=== PATIENT | female | born 1970 | race Caucasian/White ===

== ENCOUNTER 2017-11-12 21:39 | Observation (INO) ==
--- NOTE | 2017-11-12 21:59 | Emergency Department Note ---
Disposition Clinical Impression: Chest pain Disposition: Admitted As Inpatient Condition: Good Time of Disposition: 23:13 Chest Pain HPI - General Chief Complaint: ED Chest Pain Stated Complaint: chest pain x2 days Time Seen by Provider: 11/12/17 21:51 Source: patient Mode of arrival: ambulatory Limitations: no limitations Vital Signs Reviewed: Yes Nursing Notes Reviewed: Yes - History of Present Illness HPI Narrative: Patient presents to the ED with chief complaint of chest pain. Patient has a history of hypertension, fairly well controlled on Norvasc and hydrochlorothiazide. States that she was admitted 2 years ago for chest pain and had a normal stress test. Presenting today for a 2 day history of chest pressure and heaviness, which became acutely worse this evening. States has been intermittent, described as a pressure and heaviness in her central retrosternal chest with radiation into her left arm. No radiation to the back or abdomen. Associated with nausea but no vomiting. Has had intermittent diaphoresis with this as well. No headaches, changes in vision, cough, abdominal pain, pain or swelling in her legs or rash. The pain is significantly worse with exertion Severity scale (1-10): 8 - Related Data Home Medications Medication Instructions Recorded Confirmed Amlodipine Besylate 10 mg PO DAILY 11/12/17 11/12/17 Omeprazole [PriLOSEC] 40 mg PO DAILY 11/12/17 11/12/17 hydroCHLOROthiazide 25 mg PO DAILY 11/12/17 11/12/17 [Hydrochlorothiazide] Previous Rx's Medication Instructions Recorded Atorvastatin [Lipitor] 10 mg PO HS #30 tablet 01/12/16 Allergies Allergy/AdvReac Type Severity Reaction Status Date / Time Hydromorphone [From Dilaudid] AdvReac Nausea Verified 01/11/16 03:54 Review of Systems: As reviewed in the HPI. All other systems reviewed are negative or normal. Chest Pain PMH - Past Medical History Medical history: Reports: hyperlipidemia, hypertension, other Surgical history: Reports: cholecystectomy Psychiatric history: Reports: no psych history - Social History Smoking Status: Never smoker Alcohol use: Reports: none Drug use: Reports: none Physical Exam CONSTITUTIONAL: [well appearing in no acute distress] SKIN: [Warm, dry, and intact without rash] EYES: [extraocular movements are grossly intact, clear conjunctiva] HENT: [Normocephalic, atraumatic, moist mucus membranes] NECK: [no obvious swelling, normal range of motion] PULMONARY: [normal chest rise and fall, no respiratory distress or stridor CARDIOVASCULAR: [regular rate, distal extremities are warm and well perfused] GASTROINSTESTINAL: [nondistended, non-tender] GENITOURINARY: [deferred] NEUROLOGIC: [normal speech, moves all extremities] MUSCULOSKELETAL: [no gross deformities, atraumatic] PSYCHIATRIC: [normal mood and affect] - General Limitations: no limitations General appearance: alert, in no apparent distress Course Course Narrative: Patient presenting with chest pain concerning for angina. We will get a chest pain workup and admit. Patient likely will need a heart catheter or a repeat stress test. - Reevaluation(s) Reevaluation #1: Workup is unremarkable. Patient did get complete relief of her pain with nitroglycerin. Admitted to the hospitalist service for chest pain, rule out Vital Signs Temperature 98.1 F 11/12/17 21:43 Pulse Rate 79 11/12/17 21:43 Respiratory Rate 20 11/12/17 21:43 Blood Pressure 144/98 11/12/17 21:43 O2 Sat by Pulse Oximetry 97 11/12/17 21:43 Temperature 98.1 F 11/12/17 21:43 Pulse Rate 71 11/12/17 23:38 Respiratory Rate 18 11/12/17 23:38 Blood Pressure 138/84 11/12/17 23:38 O2 Sat by Pulse Oximetry 97 11/12/17 23:38 Oxygen Delivery Oxygen Delivery Room Air Chest Pain - Medical Records Medical records reviewed: Yes I reviewed the patient's medical records. - Lab Data Lab results reviewed: Yes I reviewed the patient's lab results. Result diagrams: 11/12/17 21:58 11/12/17 21:58 Lab Results 11/12/17 11/12/17 Range/Units 21:58 21:58 WBC 11.1 (4.3-11.1) K/mcL RBC 4.59 (3.82-4.97) M/mcL Hgb 13.5 (11.5-15.4) g/dL Hct 39.8 (35.3-44.9) % MCV 86.7 (83.0-100.0) fL MCH 29.4 (28.0-33.3) pg MCHC 33.9 (31.6-35.5) g/dL RDW 13.7 (11.5-14.5) % Plt Count 306 (140-400) K/mcL MPV 10.1 (9.4-12.4) fL Immature Gran % 0.4 (0-4) % Seg Neutrophils % 68.4 % Lymphocytes % 21.4 % Monocytes % 8.1 % Eosinophils % 1.3 % Basophils % 0.4 % Neutrophils # 7.6 (1.6-8.9) K/mcL Lymphocytes # 2.4 (0.6-4.6) K/mcL Monocytes # 0.9 (0.0-1.3) K/mcL Eosinophils # 0.1 (0.0-0.6) K/mcL Basophils # 0.0 (0.0-0.2) K/mcL Sodium 138 (136-145) mEq/L Potassium 3.0 L (3.5-5.1) mEq/L Chloride 103 (98-107) mEq/L Carbon Dioxide 24 (23-29) mEq/L BUN 9 (6-20) mg/dL Creatinine 0.73 (0.60-1.20) mg/dL Est GFR ( Amer) > 60 (> 60) Est GFR (Non-Af Amer) > 60 (> 60) BUN/Creatinine Ratio 12 (6-26) Glucose 118 H (70-105) mg/dL Calculated Osmolality 286 (280-300) Calcium 9.4 (8.6-10.3) mg/dL Troponin I < 0.03 (< 0.04) ng/mL - Radiology Data Radiology results reviewed: Yes I reviewed the patient's radiology results. - EKG Data EKG attestation: Yes I reviewed and interpreted this EKG. EKG results narrative: Sinus rhythm, rate 76, NH interval 149, QRS 94, QTC 422, left axis deviation, low voltage QRS in the precordial leads, no acute ischemic changes Heart Score - Score History: Highly Suspicious EKG: Non Specific repolarisation Disturbance Age: 45-65 Risk Factors: 1-2 risk factors Troponin: Less than normal limit HEART Score Total: 5 Attestation Statement - Attestation Attestation: I examined this patient and my medical decision-making was reviewed with the Resident Physician. I agree with the documented findings, disposition and treatment plan as described except to the extent set forth below.
[2017-11-12 22:07] LABS: Basophils % 0.4 %; Eosinophils # 0.1 K/mcL (0.0-0.6); Eosinophils % 1.3 %; Hematocrit 39.8 % (35.3-44.9); Hemoglobin 13.5 g/dL (11.5-15.4); Immature Granulocytes % 0.4 % (0-4); Lymphocytes # 2.4 K/mcL (0.6-4.6); Lymphocytes % 21.4 %; Mean Corpuscular HGB Conc 33.9 g/dL (31.6-35.5); Mean Corpuscular Hemoglobin 29.4 pg (28.0-33.3); Mean Corpuscular Volume 86.7 fL (83.0-100.0); Mean Platelet Volume 10.1 fL (9.4-12.4); Monocytes # 0.9 K/mcL (0.0-1.3); Monocytes % 8.1 %; Neutrophils # 7.6 K/mcL (1.6-8.9); Platelet Count 306 K/mcL (140-400); Red Blood Count 4.59 M/mcL (3.82-4.97); Red Cell Distribution Width 13.7 % (11.5-14.5); Segmented Neutrophils % 68.4 %
[2017-11-12 22:30] LABS: Troponin I < 0.03 ng/mL (< 0.04)
[2017-11-12 22:34] LABS: BUN/Creatinine Ratio 12 (6-26); Blood Urea Nitrogen 9 mg/dL (6-20); Calcium 9.4 mg/dL (8.6-10.3); Carbon Dioxide 24 mEq/L (23-29); Chloride 103 mEq/L (98-107); Glucose 118 mg/dL (70-105); Osmolality,Calculated 286 (280-300); Sodium 138 mEq/L (136-145); eGFR For African Americans > 60 (> 60); eGFR For Non-African Americans > 60 (> 60)
[2017-11-12] MEDS ORDERED: Ondansetron 4 MG/2 ML VIAL IVP ONE (22:39)
[2017-11-12] MEDS ORDERED: Aspirin 81 MG TAB.CHEW PO ONE (22:39)
[2017-11-12] MEDS: Nitroglycerin 0.4 MG TAB.SUBL SL PRN (23:41)
--- NOTE | 2017-11-13 00:01 | Internal Med History&Physical ---
<FariasLuiz - Last Filed: 11/13/17 00:20> Date of Encounter: 11/13/17 Time of Encounter: 23:30 Internal Medicine - H&P: HPI Chief complaint: Chest pain Admitted From: Emergency Dept Plans for Post Hospital Care: Home History of present illness: Ms. Rai is a 46 year old female PMHx HTN, hyperlipidemia, obesity, hyperglycemia presents to ED for complaints of pressure-like chest pain in substernal area that radiates to left submandibular region, especially when being palpated. She states that chest pain started 2 days ago, is constant 8/10 , but worse with palpation. Movement and exertion makes it worse, but CP present without movement. Pain is relieved with rest but not with nitroglycerin given today at ED. Pain radiates to her jaw. +SOB. She tried tylenol at home without relief. Denies headaches, vision changes, cough, abdominal pain, dysuria , hematuria, diarrhea, constipation, dysuria, hematuria. 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 Denies history of smoking, alcohol, or illicit drug use. Past Med Surg Social Fam HX - Past Medical History Medical history: hyperlipidemia, hypertension, other Additional medical history: TONSILECTOMY Psychiatric history: no psych history - Past Surgical History Surgical History: cholecystectomy - Social History Smoking Status: Never smoker Smokeless Tobacco Status: No Alcohol use: none Drug use: none - Family History Father Hx Family Cardiac Disorders: Yes (some heart disease, she is unclear what exactly it is) Brother Hx Family Cardiac Disorders: Yes (HTN) Mother Adopted: No Family Member Ethnicity: Non- Living Status: Hx Family Cancer: Yes Internal Medicine - H&P: Meds Atorvastatin [Lipitor] 10 mg PO HS #30 tablet 01/12/16 [Rx] Amlodipine Besylate 10 mg PO DAILY 11/12/17 [History] Omeprazole [PriLOSEC] 40 mg PO DAILY 11/12/17 [History] hydroCHLOROthiazide [Hydrochlorothiazide] 25 mg PO DAILY 11/12/17 [History] 3 Allergy/AdvReac Type Severity Reaction Status Date / Time Hydromorphone [From Dilaudid] AdvReac Nausea Verified 01/11/16 03:54 All Systems PM: A 10-system review of systems was performed and is negative for pertinent findings except as documented above in the HPI. - Constitutional Constitutional: no chills, no fever(s), no night sweats - EENT Eyes: no change in vision, no discharge, no pain, no photophobia Ears: no ear discharge, no ear pain, no tinnitus Nose, mouth and throat: no dysphagia, no nasal discharge, no neck pain, no sore throat - Cardiovascular Cardiovascular ROS IM: chest pain, no diaphoresis, no dyspnea, no lightheadedness, no palpitations, no syncope - Respiratory Respiratory: no cough, no dyspnea, no wheezing, no excessive phlegm production - Gastrointestinal Gastrointestinal: no abdominal pain, no diarrhea, no hematemesis, no hematochezia, no melena, no nausea, no vomiting - Genitourinary Genitourinary: no change in urinary stream, no dysuria, no flank pain, no hematuria - Musculoskeletal Musculoskeletal ROS IM: no numbness, no tingling - Integumentary Integumentary IM: no rash, no unusual bruising - Neurological Neurological ROS: no confusion, no convulsions, no focal weakness, no numbness, no tingling, no tremor(s) - Hematologic/Lymphatic Hematologic/Lymphatic: no easy bruising - Constitutional Vitals: Temp Pulse Resp BP Pulse Ox 98.1 F 71 18 138/84 97 11/12/17 21:43 11/12/17 23:38 11/12/17 23:38 11/12/17 23:38 11/12/17 23:38 General appearance: Present: A&O X 3, no acute distress, answers questions appropriately - Head Head exam: Present: atraumatic, normocephalic - Eye Eye exam: Present: PERRL, conjuntiva pink, sclera anicteric Pupils: Present: PERRL - Neck Neck exam general surgery: Present: supple, trachea midline. Absent: lymphadenopathy - Respiratory Respiratory exam: Present: CTAB. Absent: accessory muscle use, rales, rhonchi, wheezes - Cardiovascular Cardiovascular exam: Present: RRR, +S1, +S2. Absent: diastolic murmur, gallop, rubs, systolic murmur - GI/Abdominal GI/Abdominal exam: Present: normal bowel sounds, soft, no peritoneal signs. Absent: distended, tenderness - Extremities Exam Extremities exam: Present: warm, radial pulses palpable and symmetrical. Absent : calf tenderness, cyanotic, pedal edema - Neurological Exam Neurological exam: Present: CN II-XII intact, oriented X3, no focal deficits. Absent: pronater drift, facial droop, speech deficit - Skin Skin exam: Present: dry, intact Internal Med - H&P Results - Labs CBC & Chem 7: 11/12/17 21:58 11/12/17 21:58 - Assessment and plan (1) Chest pain Current Visit: Yes Status: Acute Assessment and plan: typical chest pain presentation with Gobler risk score 0.7%, multiple risk factors (HTN, Obesity, hyperlipidemia) Patient is at low-intermediate risk for CAD. Unable to tolerate exercise. plan for nuclear stress test tomorrow. SL nitro as needed. NPO now. Troponin negative x 1, continue trending EKG reviewed independently and NSR. Qualifiers: Qualified Code(s): I20.0 - Unstable angina (2) Hypertension Current Visit: Yes Status: Acute Assessment and plan: Continue home medications Qualifiers: Qualified Code(s): I10 - Essential (primary) hypertension (3) Hyperglycemia Current Visit: No Status: Acute Assessment and plan: check A1c (4) Hyperlipidemia Current Visit: No Status: Chronic Assessment and plan: Continue statin Qualifiers: Hyperlipidemia type: Mixed hyperlipidemia Qualified Code(s): E78.2 - Mixed hyperlipidemia (5) DVT prophylaxis Current Visit: Yes Status: Acute Assessment and plan: SubQ hep (6) Obesity, Class III, BMI 40-49.9 (morbid obesity) Current Visit: Yes Status: Acute - Time Spent With Patient Total time spent is greater than 50% in coordination of care (as documented) at patient's floor/unit and/or counseling patient: Greater than 35 minutes <Timoteo Isaac - Last Filed: 11/13/17 01:31> Date of Encounter: 11/12/17 Time of Encounter: 23:45 Internal Medicine - H&P: HPI History of present illness: Ms. Rai is a 46 year old female All Systems PM: A 10-system review of systems was performed and is negative for pertinent findings except as documented above in the HPI. - Constitutional Vitals: Temp Pulse Resp BP Pulse Ox 97.9 F 74 16 106/69 97 11/13/17 00:38 11/13/17 00:38 11/13/17 00:38 11/13/17 00:38 11/13/17 00:38 Internal Med - H&P Results - Labs CBC & Chem 7: 11/12/17 21:58 11/12/17 21:58 - Attending Attestation I examined this patient and my medical decision-making was reviewed with the Resident Physician, Luiz Farias. I agree with the documented findings, disposition and treatment plan as described with any changes as documented below. 46-year-old female patient with past medical history of hypertension who presented to the ER with complaints of chest pain. Pain is present on left side of the chest and feels like a pressure. Worsens with activity. Has been going on for 2 days. She states that she woke up with the pain 2 days back. She denies any shortness of breath or palpitations. On examination, patient is awake and alert. S1 and S2 are normal. Patient does have left-sided chest wall tenderness. Breath sounds are normal. Troponins less than 0.03. EKG shows normal sinus rhythm. Chest pain: Precordial chest pain. Patient does have family history of coronary artery disease and long-standing hypertension. Intermediate risk for coronary artery disease. Negative stress test 2 years back. Chest pain does appear to be related to costochondritis but given her intermediate risk factors , we will go ahead and place patient in hospital for observation. Trend troponins. If troponins are negative, consider stress test in the morning. Check lipid profile, A1c Essential hypertension: Monitor blood pressure. Continue home medications. - Assessment and plan (1) Chest pain Current Visit: Yes Status: Acute Qualifiers: Qualified Code(s): I20.0 - Unstable angina (2) Hyperlipidemia Current Visit: No Status: Chronic Qualifiers: Hyperlipidemia type: Mixed hyperlipidemia Qualified Code(s): E78.2 - Mixed hyperlipidemia (3) Hyperglycemia Current Visit: No Status: Acute (4) Hypertension Current Visit: Yes Status: Acute Qualifiers: Qualified Code(s): I10 - Essential (primary) hypertension (5) DVT prophylaxis Current Visit: Yes Status: Acute (6) Obesity, Class III, BMI 40-49.9 (morbid obesity) Current Visit: Yes Status: Acute - Time Spent With Patient Total time spent is greater than 50% in coordination of care (as documented) at patient's floor/unit and/or counseling patient:
[2017-11-13] MEDS ORDERED: Naloxone 0.4 MG/ML INJ IVP PRN (00:03)
--- NOTE | 2017-11-13 00:28 | Emergency Department Note ---
Disposition Clinical Impression: Chest pain Disposition: Admitted As Inpatient Condition: Good General Adult HPI - General Chief complaint: ED Chest Pain Stated complaint: chest pain x2 days Time Seen by Provider: 11/12/17 21:51 Source: patient Mode of arrival: ambulatory Limitations: no limitations - History of Present Illness Pain Scale: 0 - Related Data Home Medications Medication Instructions Recorded Confirmed Amlodipine Besylate 10 mg PO DAILY 11/12/17 11/12/17 Omeprazole [PriLOSEC] 40 mg PO DAILY 11/12/17 11/12/17 hydroCHLOROthiazide 25 mg PO DAILY 11/12/17 11/12/17 [Hydrochlorothiazide] Previous Rx's Medication Instructions Recorded Atorvastatin [Lipitor] 10 mg PO HS #30 tablet 01/12/16 Allergies Allergy/AdvReac Type Severity Reaction Status Date / Time Hydromorphone [From Dilaudid] AdvReac Nausea Verified 01/11/16 03:54 Past Medical History - Past Medical History Medical history: Reports: hyperlipidemia, hypertension, other Surgical history: Reports: cholecystectomy Psychiatric history: Reports: no psych history - Social History Smoking Status: Never smoker Smokeless Tobacco Status: No Alcohol use: Reports: none Drug use: Reports: none Physical Exam - General Limitations: no limitations General appearance: alert, in no apparent distress Course Vital Signs Temperature 98.1 F 11/12/17 21:43 Pulse Rate 79 11/12/17 21:43 Respiratory Rate 20 11/12/17 21:43 Blood Pressure 144/98 11/12/17 21:43 O2 Sat by Pulse Oximetry 97 11/12/17 21:43 Temperature 98.1 F 11/12/17 21:43 Pulse Rate 71 11/12/17 23:38 Respiratory Rate 18 11/13/17 00:19 Blood Pressure 131/85 11/13/17 00:19 O2 Sat by Pulse Oximetry 97 11/12/17 23:38 Oxygen Delivery Oxygen Delivery Room Air Medical Decision Making - Lab Data Result diagrams: 11/12/17 21:58 11/12/17 21:58 Lab Results 11/12/17 11/12/17 Range/Units 21:58 21:58 WBC 11.1 (4.3-11.1) K/mcL RBC 4.59 (3.82-4.97) M/mcL Hgb 13.5 (11.5-15.4) g/dL Hct 39.8 (35.3-44.9) % MCV 86.7 (83.0-100.0) fL MCH 29.4 (28.0-33.3) pg MCHC 33.9 (31.6-35.5) g/dL RDW 13.7 (11.5-14.5) % Plt Count 306 (140-400) K/mcL MPV 10.1 (9.4-12.4) fL Immature Gran % 0.4 (0-4) % Seg Neutrophils % 68.4 % Lymphocytes % 21.4 % Monocytes % 8.1 % Eosinophils % 1.3 % Basophils % 0.4 % Neutrophils # 7.6 (1.6-8.9) K/mcL Lymphocytes # 2.4 (0.6-4.6) K/mcL Monocytes # 0.9 (0.0-1.3) K/mcL Eosinophils # 0.1 (0.0-0.6) K/mcL Basophils # 0.0 (0.0-0.2) K/mcL Sodium 138 (136-145) mEq/L Potassium 3.0 L (3.5-5.1) mEq/L Chloride 103 (98-107) mEq/L Carbon Dioxide 24 (23-29) mEq/L BUN 9 (6-20) mg/dL Creatinine 0.73 (0.60-1.20) mg/dL Est GFR ( Amer) > 60 (> 60) Est GFR (Non-Af Amer) > 60 (> 60) BUN/Creatinine Ratio 12 (6-26) Glucose 118 H (70-105) mg/dL Calculated Osmolality 286 (280-300) Calcium 9.4 (8.6-10.3) mg/dL Troponin I < 0.03 (< 0.04) ng/mL Attestation Statement - Attestation Attestation: I examined this patient and my medical decision-making was reviewed with the Resident Physician. I agree with the documented findings, disposition and treatment plan as described except to the extent set forth below. 46-year-old female presents ED because of chest pain. She has had on onset of left-sided chest pain with radiation to her left arm associated with nausea, weakness and diaphoresis. Symptoms are worse with exertion. No fevers. No productive cough. No vomiting. Does have history of poorly controlled hypertension. Strong family history of premature coronary disease Pleasant female in no apparent distress. Oropharynx clear mucous membranes membranes moist. Neck supple. Chest is clear to auscultation bilaterally. Cardiac exam regular. Abdomen soft, nondistended and nontender. Extremities well perfused, warm and dry. EKG is unremarkable for any acute process. Initial troponin is normal. Pain resolved with ntg and she will be admitted for further evaluation.
[2017-11-13] MEDS: Nitroglycerin 0.4 MG TAB.SUBL SL PRN (01:42)
[2017-11-13 05:23] LABS: Basophils % 0.5 %; Eosinophils # 0.2 K/mcL (0.0-0.6); Eosinophils % 2.6 %; Hematocrit 37.1 % (35.3-44.9); Hemoglobin 12.4 g/dL (11.5-15.4); Immature Granulocytes % 0.4 % (0-4); Lymphocytes # 2.2 K/mcL (0.6-4.6); Lymphocytes % 27.1 %; Mean Corpuscular HGB Conc 33.4 g/dL (31.6-35.5); Mean Corpuscular Hemoglobin 29.2 pg (28.0-33.3); Mean Corpuscular Volume 87.3 fL (83.0-100.0); Mean Platelet Volume 10.3 fL (9.4-12.4); Monocytes # 0.8 K/mcL (0.0-1.3); Monocytes % 9.8 %; Neutrophils # 4.9 K/mcL (1.6-8.9); Platelet Count 249 K/mcL (140-400); Red Blood Count 4.25 M/mcL (3.82-4.97); Red Cell Distribution Width 13.9 % (11.5-14.5); Segmented Neutrophils % 59.6 %
[2017-11-13 05:43] LABS: Troponin I < 0.03 ng/mL (< 0.04)
[2017-11-13 05:45] LABS: BUN/Creatinine Ratio 13 (6-26); Blood Urea Nitrogen 9 mg/dL (6-20); Calcium 8.8 mg/dL (8.6-10.3); Carbon Dioxide 26 mEq/L (23-29); Chloride 105 mEq/L (98-107); Glucose 100 mg/dL (70-105); Osmolality,Calculated 287 (280-300); Potassium 3.4 mEq/L (3.5-5.1); Sodium 139 mEq/L (136-145); eGFR For African Americans > 60 (> 60); eGFR For Non-African Americans > 60 (> 60)
[2017-11-13] MEDS: *HR* Heparin 5,000 UNIT/ML VIAL SQ SCH ×2 (05:58→17:32)
[2017-11-13] MEDS: Acetaminophen 325 MG TABLET PO PRN ×3 (06:02→22:58)
[2017-11-13] MEDS ORDERED: Regadenoson 0.4 MG/5 ML SYRINGE IVP ONE (06:18)
[2017-11-13] MEDS: hydroCHLOROthiazide 25 MG TABLET PO SCH (10:30)
[2017-11-13] MEDS: amLODIPine 5 MG TABLET PO SCH (10:30)
[2017-11-13 11:23] LABS: Estimated Average Glucose 123 mg/dl; Hemoglobin A1C 5.9 %
[2017-11-13] MEDS ORDERED: Potassium Chloride Elixir 20 MEQ/15 ML UDC PO ONE (13:40)
--- NOTE | 2017-11-13 16:44 | Internal Med Progress Note ---
Date of Encounter: 11/13/17 Time of Encounter: 13:20 - Assessment and plan (1) Chest pain Current Visit: Yes Status: Acute Assessment and plan: To consider ACS. Serial troponins are negative for ACS. EKG and telemetry with no acute changes. Underwent first part of nuclear stress test today. Follow up final report. Continue when necessary sublingual nitroglycerin. Supportive care. Qualifiers: Chest pain type: unspecified Qualified Code(s): R07.9 - Chest pain, unspecified (2) Hyperlipidemia Current Visit: Yes Status: Chronic Qualifiers: Hyperlipidemia type: unspecified Qualified Code(s): E78.5 - Hyperlipidemia , unspecified (3) Hypertension Current Visit: Yes Status: Chronic Assessment and plan: Patient requests for addition of another blood pressure medication, however review of blood pressure measurements does not warrant more medications, at risk for hypotension. Continue to monitor. Continue Norvasc and hydrochlorothiazide. Qualifiers: Hypertension type: essential hypertension Qualified Code(s): I10 - Essential (primary) hypertension (4) DVT prophylaxis Current Visit: Yes Status: Acute (5) Obesity, Class III, BMI 40-49.9 (morbid obesity) Current Visit: Yes Status: Chronic - Time Spent With Patient Total time spent is greater than 50% in coordination of care (as documented) at patient's floor/unit and/or counseling patient: - Subjective Interval history: Reports mild to moderate retrosternal chest pain and attributes it to increased blood pressure from baseline and requests for the addition of more blood pressure medications. No shortness of breath, dizziness, palpitations or syncope. Underwent first part of stress test today. - Constitutional Vitals: Temp Pulse Resp BP Pulse Ox 97.8 F 68 20 116/80 96 11/13/17 15:27 11/13/17 15:27 11/13/17 15:27 11/13/17 15:27 11/13/17 15:27 General appearance: Present: A&O X 3, morbidly obese, no acute distress, answers questions appropriately - Respiratory Respiratory exam: Present: CTAB. Absent: accessory muscle use, rales, rhonchi, wheezes - Cardiovascular Cardiovascular exam: Present: RRR, +S1, +S2. Absent: diastolic murmur, gallop, rubs, systolic murmur - GI/Abdominal GI/Abdominal exam: Present: normal bowel sounds, soft (obese), no peritoneal signs. Absent: distended, tenderness - Extremities Exam Extremities exam: Present: full ROM, warm, radial pulses palpable and symmetrical. Absent: calf tenderness, cyanotic, pedal edema Internal Medicine: Result - Labs CBC & Chem 7: 11/13/17 05:10 11/13/17 05:10 Labs: Short CBC 11/13/17 Range/Units 05:10 WBC 8.2 (4.3-11.1) K/mcL Hgb 12.4 (11.5-15.4) g/dL Hct 37.1 (35.3-44.9) % Plt Count 249 (140-400) K/mcL Neutrophils # 4.9 (1.6-8.9) K/mcL BMP 11/13/17 05:10 Sodium 139 Potassium 3.4 L Chloride 105 Carbon Dioxide 26 BUN 9 Creatinine 0.67 Glucose 100 Calcium 8.8 Cardiac Enzymes 11/13/17 11/13/17 Range/Units 05:10 10:57 Troponin I < 0.03 < 0.03 (< 0.04) ng/mL Consult Discharge Plan - Plan Referrals: Shelly Marinelli CNP [Primary Care Provider] - 11/20/17 10:35 am
[2017-11-14] MEDS: *HR* Heparin 5,000 UNIT/ML VIAL SQ SCH (06:21)
[2017-11-14 07:44] LABS: BUN/Creatinine Ratio 21 (6-26); Blood Urea Nitrogen 14 mg/dL (6-20); Carbon Dioxide 26 mEq/L (23-29); Chloride 103 mEq/L (98-107); Glucose 105 mg/dL (70-105); Osmolality,Calculated 285 (280-300); Potassium 3.3 mEq/L (3.5-5.1); Sodium 137 mEq/L (136-145); eGFR For African Americans > 60 (> 60); eGFR For Non-African Americans > 60 (> 60)
[2017-11-14 08:37] LABS: Magnesium 2.1 mg/dL (1.6-2.6)
[2017-11-14] MEDS: hydroCHLOROthiazide 25 MG TABLET PO SCH (09:03)
[2017-11-14] MEDS: amLODIPine 5 MG TABLET PO SCH (09:03)
[2017-11-14 11:44] VITALS: BP 128/84
[2017-11-14] MEDS: Acetaminophen 325 MG TABLET PO PRN (12:18)
[2017-11-14] MEDS ORDERED: Potassium Chloride Elixir 20 MEQ/15 ML UDC PO ONE (14:28)
--- NOTE | 2017-11-14 15:01 | Discharge Summary ---
- NOTES TO OUTPATIENT PROVIDER Notes to Outpatient Provider: Monitor BP Orders not resulted at time of discharge: Pending orders 11/13/17 00:19 NM pauly perf SPECT multi [NM] Routine Date of Encounter: 11/14/17 Time of Encounter: 14:59 - Discharge Diagnosis (1) Chest pain Priority: Primary Status: Acute Qualifiers: Chest pain type: unspecified Qualified Code(s): R07.9 - Chest pain, unspecified (2) Hyperlipidemia Priority: Secondary Status: Chronic Qualifiers: Hyperlipidemia type: unspecified Qualified Code(s): E78.5 - Hyperlipidemia , unspecified (3) Hypertension Priority: Secondary Status: Chronic Qualifiers: Hypertension type: essential hypertension Qualified Code(s): I10 - Essential (primary) hypertension (4) Obesity, Class III, BMI 40-49.9 (morbid obesity) Priority: Secondary Status: Chronic Hospital course: Ms. Rai is a 46 year old female with the above medical problems, who was admitted with intermittent retrosternal chest pain. Initial labs, EKG, chest x- ray showed no acute abnormality. Serial troponins remained negative for ACS. Telemetry monitoring remained uneventful. Nuclear stress test was negative for ischemia or infarct. Patient attributes her symptoms to blood pressure that is elevated from baseline for her. Review of blood pressure readings showed essentially well controlled with no high readings. Explained this to the patient, will hold off on addition of further antihypertensives, patient is to follow up with PCP for close monitoring of her blood pressure. Discharge discussed with: patient, family, nurse - Time Spent with Patient Total time spent providing and/or coordinating discharge services: Greater than 30 minutes (40 min) - Discharge Medications Prescriptions: Potassium Chloride [K-Tab ER] 10 meq PO DAILY #15 tablet.er Home Medications: Atorvastatin [Lipitor] 10 mg PO HS #30 tablet 01/12/16 [Rx] Amlodipine Besylate 10 mg PO DAILY 11/12/17 [History] Omeprazole [PriLOSEC] 40 mg PO DAILY 11/12/17 [History] hydroCHLOROthiazide [Hydrochlorothiazide] 25 mg PO DAILY 11/12/17 [History] Potassium Chloride [K-Tab ER] 10 meq PO DAILY #15 tablet.er 11/14/17 [Rx] Allergies/Adverse Reactions: 3 Allergy/AdvReac Type Severity Reaction Status Date / Time Hydromorphone [From Dilaudid] AdvReac Nausea Verified 01/11/16 03:54 Date of admission: 11/12/17 23:53 Primary care physician: Shelly Marinelli CNP Discharging clinician: Charlotte Adams Anticipated date of discharge: 11/14/17 - Constitutional Vitals: Temp Pulse Resp BP Pulse Ox 98.3 F 70 14 128/84 97 11/14/17 11:43 11/14/17 11:43 11/14/17 11:43 11/14/17 11:43 11/14/17 11:43 General appearance: Present: A&O X 3, morbidly obese, answers questions appropriately - Cardiovascular Cardiovascular exam: Present: RRR, +S1, +S2. Absent: diastolic murmur, gallop, rubs, systolic murmur - Patient Status Disposition: Home, Self-Care Condition: Good Functional capacity at discharge: independent ambulation Overall status at discharge: patient is progressing back to baseline - Discharge Instructions Instructions: Potassium Chloride (By mouth), Chest Pain (DC), Chronic Hypertension (DC) Follow Up With: Shelly Marinelli CNP [Primary Care Provider] - 11/20/17 10:35 am - Diet and Activity Activity: resume usual activities as tolerated (return to work as scheduled) Diet: low fat, low cholesterol, low salt diet
--- NOTE | 2017-11-15 21:38 | Electrocardiograph Report ---
[address] [place], [place] [address] Test Date: 2017-11-12 Pat Name: Carola Rai Department: [id number] Room: 3B64 Gender: F Topper [employer] Automatic: VIC : [id number] Requested By: Basil Robison Order Number: [id number] Reading MD: Thomas Leal Measurements Intervals [place] Rate: 76 P: 35 TX: 149 QRS: -70 QRSD: 94 T: -1 QT: 391 QTc: 422 Interpretive Statements SINUS RHYTHM INDETERMINATE AXIS LEFT ANTERIOR FASCICULAR BLOCK POOR R WAVE PROGRESSION INFERIOR ST-T CHANGES, CONSIDER ISCHEMIA Electronically Signed On 11-15-2017 21:36:58 EDT by Thomas Leal
== END 2017-11-14 15:30 | disposition home or self-care (01) ==
LOC: EMEROO 21:39 → 3BNU 21:39 → SUATTDRO 23:53 → 3BNU 11-13 00:21
PROVIDERS: ADMIT Internal Medicine Hematology & Oncology; ATTEND Internal Medicine